=== PATIENT | female | born 1990 | race Caucasian/White ===

== ENCOUNTER 2022-01-22 09:01 | Emergency (ER) | payer OTHER, SELFPAY ==
[2022-01-22 09:05] VITALS: BP 126/83; PULSE 118; RESP 14; TEMP 35.7; O2SAT 100; BMI 25.0
--- NOTE | 2022-01-22 09:21 | ED.GENADULT ---
HPI - General Adult General Time Seen by Provider: 09:21 Date Seen: 01/22/22 Chief complaint: Arrhythmia/Palpitations Stated complaint: Heart palpitations, short of breath Time Seen by Provider: 01/22/22 09:04 Source: patient Mode of arrival: ambulatory Limitations: no limitations History of Present Illness HPI narrative: The patient is a 31-year-old female, who started Celexa for anxiety within the last couple months. Since then she has no she is very sensitive alcohol. She has had for canned lemonade alcoholic beverages last night, felt like she might be ?hung over? this morning, but noticed her heart palpating and feeling funny, feels some slight shortness of breath with that. No leg swelling, edema of the legs, no bleeding or clotting problems. Patient has a IUD in place , she has otherwise been largely healthy., no chest pain no history of arrhythmias. No other drugs or street medications use, or [id number] medications. Related Data Previous Rx's Medication Instructions Recorded citalopram 20 mg tablet 20 mg PO QDAY #90 tabs 11/25/21 metoprolol succinate 25 mg 25 mg PO DAILY #14 tabs 01/22/22 tablet,extended release 24 hr Allergies Allergy/AdvReac Type Severity Reaction Status Date / Time No Known Allergies Allergy Verified 11/25/21 15:04 Review of Systems Status of ROS: Reports: 10 or more systems reviewed and unremarkable except as noted in History and below [facility] Medical History FLORENTIN (generalized anxiety disorder) Social History Smoking Status: Never smoker How often do you have a drink containing alcohol: monthly or less AUDIT-C Alcohol total score: 1 Non-prescribed substance use: denies use Exam Narrative: Exam Narrative: Objective: Vital signs unremarkable, except pulse is slightly elevated 118 Alert or x3, noncyanotic, talks in even and unlabored sentences Neck is supple Chest is clear no rales or wheezing Heart rate and rhythm regular with a lot a ectopy, no murmurs, no S3 no S4 Abdomen benign Extremities are no edema neurologic nonfocal Periphery good perfusion Skin warm and dry Const: Vital Signs, click to edit/add: Vital Signs - 24 hr 01/22/22 09:05 09/02/22 10:31 01/22/22 11:01 Temperature 96.2 F L Pulse Rate 107 H 106 H Pulse Rate [Pulse Oximeter] 118 H Respiratory Rate 14 Blood Pressure 92/66 106/73 Blood Pressure [Ri ght Upper Arm] 126/83 Pulse Oximetry 100 100 100 Oxygen Delivery Me thod Room Air 01/22/22 11:24 01/22/22 12:01 01/22/22 12:31 Temperature Pulse Rate 118 H 110 H 118 H Pulse Rate [Pulse Oximeter] Respiratory Rate Blood Pressure 96/84 104/75 98/73 Blood Pressure [Ri ght Upper Arm] Pulse Oximetry 100 99 100 Oxygen Delivery Me thod Course Vital Signs Vital signs: Initial Vital Signs Temperature 96.2 F L 01/22/22 09:05 Temperature Source Temporal Artery Scan 01/22/22 09:05 Pulse Rate 118 H 01/22/22 09:05 Respiratory Rate 14 01/22/22 09:05 Blood Pressure 126/83 01/22/22 09:05 Blood Pressure Mean 97 01/22/22 09:05 Blood Pressure Position Sitting 01/22/22 09:05 Pulse Oximetry 100 01/22/22 09:05 Oxygen Delivery Method 01/22/22 09:05 Vital Signs Temperature 96.2 F L 01/22/22 09:05 Pulse Rate 118 H 01/22/22 09:05 Respiratory Rate 14 01/22/22 09:05 Blood Pressure 126/83 01/22/22 09:05 Pulse Oximetry 100 01/22/22 09:05 Oxygen Delivery Method 01/22/22 09:05 Temperature 96.2 F L 01/22/22 09:05 Pulse Rate 118 H 01/22/22 12:31 Respiratory Rate 14 01/22/22 09:05 Blood Pressure 98/73 01/22/22 12:31 Pulse Oximetry 100 01/22/22 12:31 Oxygen Delivery Method 01/22/22 09:05 Medical Decision Making MDM Narrative Medical decision making narrative: Patient presents with likely mild alcoholic hangover, on Celexa, sensitivity to alcohol since being on Celexa. Patient does have some ectopy this morning will check an EKG, put on a quality assurance monitor, laboratory studies including troponin D-dimer, COVID. Will review studies when they return, IV fluids as well, and also give aspirin. Differential would include sensitivity alcohol while on Celexa, COVID, intrinsic arrhythmia. Addendum: The patient reports that she felt okay going to bed last night, but got sick this morning and threw up a couple of times about 730 subsequently noticed the rapid heart rate. So onset of symptoms is about 730 this morning. EKG by my read shows narrow complex tachycardia irregularly irregular consistent with atrial fibrillation ventricular rate about 124 06/23/2004 on telemetry. Trial of carotid massage lower the patient's heart rate of about the 97 range, she seemed to have a flutter with saw tooth 3-1 conduction for brief period of time, and then resumed her AFib rate in about the [id number] range. Will try IV fluids and some Ativan, and if she does not convert than likely some rate slowing medication. Cardiology consult as needed. Addendum: The patient's CRP is negative COVID negative, D-dimer negative, alcohol negative, troponin negative, white blood cell count is elevated 14,370 hemoglobin is 14.9,, ER profile is unremarkable, alcohol level is negative. Discussed her case with [facility] hotel office manager who recommended no cardioversion at this time as we really do not know the time of her onset although she did feel it started after she vomited today certainly she has been in AFib, and at this point cardiology recommends aspirin Holter monitoring her ZIO patch metoprolol XL 25 mg and follow up with Cardiology. This will be arranged. I will monitor her as well with a 2nd troponin at noon and monitor her heart rate which ranges now between 105 and 1 25. Addendum: The patient remains stable heart rate between 90 and 115. Will have her on a Holter monitor, scheduled cardiology follow-up, patient likely needs an echo in follow-up, per cardiology recommendation will keep her on metoprolol XL 25 mg daily, will have her take aspirin daily, and monitor blood pressure a couple times a day, she does have a home blood pressure cuff and monitor. If he has trouble or difficulty return here. Otherwise follow up with Cardiology. Lab Data Labs: Lab Results 01/22/22 01/22/22 01/22/22 Range/Units 09:19 09:19 09:19 WBC (4.50-11.00) K/uL RBC (4.00-5.20) m/uL Hgb (12.0-16.0) gm/dL Hct (33.0-51.0) % MCV (80-100) fL MCH (26-34) pg MCHC (32-36) gm/dL RDW Coeff of Vinicius (11.5-15.5) % Plt Count (140-440) K/uL Neut % (Auto) (42.0-72.0) % Lymph % (Auto) (20-44) % [place] % (Auto) (0.0-11.0) % Eos % (Auto) (0.0-7.0) % Baso % (Auto) (0.0-3.0) % Neut # (Auto) (1.7-7.0) K/uL Lymph # (Auto) (0.90-2.90) K/uL [place] # (Auto) (0.00-0.90) K/UL Eos # (Auto) (0.00-0.50) K/uL Baso # (Auto) (0.00-0.30) K/uL Abs Immat Gran (auto) (0.00-0.30) K/uL Diff Slide Review (Acceptable) D-Dimer Quant (PE/DVT) (0.00-0.50) ug/ml Sodium 138 (135-149) mmol/L Potassium 4.0 (3.6-5.1) mmol/L Chloride 103 (96-114) mmol/L Carbon Dioxide 21 (20-32) mmol/L BUN 14 (5-24) mg/dL Creatinine 0.6 (0.5-1.5) mg/dL Estimated Creat Clear 128.35 Estimated GFR 124 ml/min Glucose 101 (60-115) mg/dL Calcium 9.8 (8.4-10.6) mg/dL Magnesium 1.9 (1.5-2.6) mg/dL Total Bilirubin 1.0 (0.1-1.5) mg/dL Direct Bilirubin 0.3 (0.0-0.5) mg/dL AST 25 (12-35) U/L ALT 19 (4-35) U/L Alkaline Phosphatase 54 (40-150) U/L C-Reactive Protein < 0.5 L (0.5-1.0) mg/dL Total Protein 9.1 H (6.0-8.3) g/dL Albumin 5.4 H (3.3-5.0) g/dL Amylase 75 (18-89) U/L HCG, Qual Negative (Negative) Ethyl Alcohol < 0.01 L (0.01-0.03) % SARS-CoV-2 (PCR) (Negative) POC Troponin I (0.01-0.04) ng/ml 01/22/22 01/22/22 01/22/22 Range/Units 09:35 09:50 09:50 WBC (4.50-11.00) K/uL RBC (4.00-5.20) m/uL Hgb (12.0-16.0) gm/dL Hct (33.0-51.0) % MCV (80-100) fL MCH (26-34) pg MCHC (32-36) gm/dL RDW Coeff of Vinicius (11.5-15.5) % Plt Count (140-440) K/uL Neut % (Auto) (42.0-72.0) % Lymph % (Auto) (20-44) % [place] % (Auto) (0.0-11.0) % Eos % (Auto) (0.0-7.0) % Baso % (Auto) (0.0-3.0) % Neut # (Auto) (1.7-7.0) K/uL Lymph # (Auto) (0.90-2.90) K/uL [place] # (Auto) (0.00-0.90) K/UL Eos # (Auto) (0.00-0.50) K/uL Baso # (Auto) (0.00-0.30) K/uL Abs Immat Gran (auto) (0.00-0.30) K/uL Diff Slide Review (Acceptable) D-Dimer Quant (PE/DVT) 0.28 (0.00-0.50) ug/ml Sodium (135-149) mmol/L Potassium (3.6-5.1) mmol/L Chloride (96-114) mmol/L Carbon Dioxide (20-32) mmol/L BUN (5-24) mg/dL Creatinine (0.5-1.5) mg/dL Estimated Creat Clear Estimated GFR ml/min Glucose (60-115) mg/dL Calcium (8.4-10.6) mg/dL Magnesium (1.5-2.6) mg/dL Total Bilirubin (0.1-1.5) mg/dL Direct Bilirubin (0.0-0.5) mg/dL AST (12-35) U/L ALT (4-35) U/L Alkaline Phosphatase (40-150) U/L C-Reactive Protein (0.5-1.0) mg/dL Total Protein (6.0-8.3) g/dL Albumin (3.3-5.0) g/dL Amylase (18-89) U/L HCG, Qual (Negative) Ethyl Alcohol (0.01-0.03) % SARS-CoV-2 (PCR) Negative SARS-CoV-2 (Negative) POC Troponin I 0.00 L (0.01-0.04) ng/ml 01/22/22 01/22/22 Range/Units 09:50 11:46 WBC 14.37 H (4.50-11.00) K/uL RBC 4.79 (4.00-5.20) m/uL Hgb 14.9 (12.0-16.0) gm/dL Hct 44.8 (33.0-51.0) % MCV 94 (80-100) fL MCH 31 (26-34) pg MCHC 33 (32-36) gm/dL RDW Coeff of Vinicius 12.0 (11.5-15.5) % Plt Count 202 (140-440) K/uL Neut % (Auto) 83.7 H (42.0-72.0) % Lymph % (Auto) 12.2 L (20-44) % [place] % (Auto) 3.6 (0.0-11.0) % Eos % (Auto) 0.3 (0.0-7.0) % Baso % (Auto) 0.1 (0.0-3.0) % Neut # (Auto) 12.00 H (1.7-7.0) K/uL Lymph # (Auto) 1.80 (0.90-2.90) K/uL [place] # (Auto) 0.50 (0.00-0.90) K/UL Eos # (Auto) 0.00 (0.00-0.50) K/uL Baso # (Auto) 0.00 (0.00-0.30) K/uL Abs Immat Gran (auto) 0.02 (0.00-0.30) K/uL Diff Slide Review Acceptable Review (Acceptable) D-Dimer Quant (PE/DVT) (0.00-0.50) ug/ml Sodium (135-149) mmol/L Potassium (3.6-5.1) mmol/L Chloride (96-114) mmol/L Carbon Dioxide (20-32) mmol/L BUN (5-24) mg/dL Creatinine (0.5-1.5) mg/dL Estimated Creat Clear Estimated GFR ml/min Glucose (60-115) mg/dL Calcium (8.4-10.6) mg/dL Magnesium (1.5-2.6) mg/dL Total Bilirubin (0.1-1.5) mg/dL Direct Bilirubin (0.0-0.5) mg/dL AST (12-35) U/L ALT (4-35) U/L Alkaline Phosphatase (40-150) U/L C-Reactive Protein (0.5-1.0) mg/dL Total Protein (6.0-8.3) g/dL Albumin (3.3-5.0) g/dL Amylase (18-89) U/L HCG, Qual (Negative) Ethyl Alcohol (0.01-0.03) % SARS-CoV-2 (PCR) (Negative) POC Troponin I 0.00 L (0.01-0.04) ng/ml Discharge Plan Discharge Clinical Impression: Heart palpitations, Atrial fibrillation Patient Disposition: Home w/ Parent or Adult Condition: Improved Additional Instructions: Follow up appointment scheduled at the [facility] on 01/29 with a 1:15pm arrival time. Light activity, aspirin daily 324 mg, metoprolol 25 mg of the extended release daily, citalopram every other day until cardiology visit, avoid alcohol Activity Level: Light activity Discharge Diet: Regular Prescriptions: New metoprolol succinate 25 mg tablet extended release 24 hr 25 mg PO DAILY Qty: 14 2RF No Action citalopram 20 mg tablet 20 mg PO QDAY Qty: 90 3RF Follow Up/Referrals: Jillian James MD [Primary Care Provider] - Stand Alone Forms: [employer] Info Instructions
[2022-01-22] MEDS: ASPIRIN 81 MG TAB.CHEW 324 MG PO (09:40)
[2022-01-22] MEDS: LORazepam 2 MG/ML inj 1 MG IVP (09:49)
[2022-01-22] MEDS: 0.9 % SODIUM CHLORIDE 1000 ml 1,000 ML 6000 ML IV ×2 (09:51→10:27)
[2022-01-22 10:21] LABS: D Dimer Quantitative* 0.28 ug/ml (0.00-0.50)
[2022-01-22] MEDS: dilTIAZem 5 MG/ML inj 15 MG IVP (10:27)
[2022-01-22 10:28] LABS: Albumin* 5.4 g/dL (3.3-5.0); Chloride* 103 mmol/L (96-114); Sodium* 138 mmol/L (135-149)
[2022-01-22 10:31] VITALS: BP 92/66; PULSE 107; O2SAT 100
[2022-01-22 10:31] LABS: Amylase* 75 U/L (18-89)
[2022-01-22 10:31] LABS: SARS PCR* Negative SARS-CoV-2 (Negative)
[2022-01-22 10:32] LABS: Bilirubin Direct* 0.3 mg/dL (0.0-0.5); Carbon Dioxide* 21 mmol/L (20-32); Creatinine* 0.6 mg/dL (0.5-1.5); Est. Creatinine Clearance* 128.35; Estimated Glomerular Filt Rate 124 ml/min
[2022-01-22 10:33] LABS: Alanine Aminotransferase* 19 U/L (4-35); Alkaline Phosphatase* 54 U/L (40-150); Aspartate Amino Transferase* 25 U/L (12-35); Blood Urea Nitrogen* 14 mg/dL (5-24); Calcium* 9.8 mg/dL (8.4-10.6); Glucose* 101 mg/dL (60-115); HCG Qualitative Serum* Negative (Negative); Total Protein* 9.1 g/dL (6.0-8.3)
[2022-01-22 10:39] LABS: C Reactive Protein* < 0.5 mg/dL (0.5-1.0); Ethanol* < 0.01 % (0.01-0.03)
[2022-01-22 10:52] LABS: Basophils Percent Auto 0.1 % (0.0-3.0); Eosinophils Percent Auto 0.3 % (0.0-7.0); Hematocrit 44.8 % (33.0-51.0); Hemoglobin* 14.9 gm/dL (12.0-16.0); Immature Granulocytes Abs Auto 0.02 K/uL (0.00-0.30); Lymphocytes Percent Auto 12.2 % (20-44); Mean Corpuscular HGB Conc 33 gm/dL (32-36); Mean Corpuscular Hemoglobin 31 pg (26-34); Mean Corpuscular Volume 94 fL (80-100); Monocytes Percent Auto 3.6 % (0.0-11.0); Neutrophils Percent Auto 83.7 % (42.0-72.0); Platelet Count* 202 K/uL (140-440); Red Blood Count 4.79 m/uL (4.00-5.20); White Blood Count* 14.37 K/uL (4.50-11.00)
[2022-01-22 10:53] LABS: Slide Review Reflex Yes
[2022-01-22 10:58] LABS: Magnesium* 1.9 mg/dL (1.5-2.6)
[2022-01-22 11:01] VITALS: BP 106/73; PULSE 106; O2SAT 100
[2022-01-22] MEDS: ACETAMINOPHEN 500 MG TABLET 1000 MG PO (11:18)
[2022-01-22 11:23] LABS: Slide Review Acceptable Review (Acceptable)
[2022-01-22 11:24] VITALS: BP 96/84; PULSE 118; O2SAT 100
[2022-01-22] MEDS: METOPROLOL SUCCINATE (XL) 25 MG TAB PO (11:25)
[2022-01-22 12:01] VITALS: BP 104/75; PULSE 110; O2SAT 99
[2022-01-22 12:31] VITALS: BP 98/73; PULSE 118; O2SAT 100
== END 2022-01-22 13:14 | disposition home or self-care (01) ==
PROVIDERS: Emergency Provider Family Medicine; PCP Internal Medicine
DX: I48.91 Unspecified atrial fibrillation (principal)
CPT/HCPCS: 36415; 80048; 80076; 82077; 82150; 83735; 84484; 84703; 85025; 85379; 86140; 87635; 93005; 93225; 93226; 96374; 96375; 99285; A9270; J2060; J7030

== ENCOUNTER 2022-01-29 13:51 | Outpatient (CLI) | payer OTHER, SELFPAY | END 2022-01-29 13:52 | disposition home or self-care (01) | LOC: NFLDREF 13:52 | PROVIDERS: PCP Internal Medicine; Visit Provider Internal Medicine Cardiovascular Disease | DX: I48.91 Unspecified atrial fibrillation (principal); R00.2 Palpitations | CPT/HCPCS: 84443 ==

== ENCOUNTER 2022-02-12 07:48 | Outpatient (CLI) | payer OTHER, SELFPAY | END 2022-02-12 07:49 | disposition home or self-care (01) | LOC: RAD 07:49 | PROVIDERS: PCP Internal Medicine; Visit Provider Internal Medicine Cardiovascular Disease | DX: I48.91 Unspecified atrial fibrillation (principal) | CPT/HCPCS: 93306 ==

== ENCOUNTER 2023-09-05 10:35 | Outpatient (CLI) | payer OTHER, SELFPAY | END 2023-09-05 10:36 | disposition home or self-care (01) | PROVIDERS: PCP Internal Medicine; Visit Provider Internal Medicine | DX: Z13.29 Encounter for screening for other suspected endocrine disorder (principal) | CPT/HCPCS: 84439; 84443; 84481 ==

== ENCOUNTER 2024-02-16 10:15 | Outpatient (REF) | payer OTHER, SELFPAY ==
--- OUTSIDE RECORDS SUMMARY | 2024-02-16 10:21 | XMS_ITS | Clinical Summary ---
Author Organization [facility] Address [place], [place] [address] Care Team Providers Care Application Support Manager Name Role Phone Abdirahman Dong Kaylin Unavailable Azar Lopez MD Primary Care Provider Allergies No known active allergies Medications Medication Sig Dispensed Refills Start Date End Date Status polyethylene glycol (Miralax) 17 g per packet packetIndications :Constipation, unspecified constipation type Mix 17 g in liquid then take by mouth once daily if needed for Constipation. 02/06/2024 Active medication order composerIndicatio ns:Anxiety 1st phorum magnesium blend powder - very infrequently 02/06/2024 Active acetaminophen-iso metheptane-dichlo ralphenazone, 325-65-100 mg, (MIDRIN) 325-65-100 mg capsuleIndication s:Headache(784.0) Take 1 capsule by mouth 4 times daily if needed for Migraine. Max acetaminophen dose: 4000mg in 24 hrs. 20 capsule 2 08/15/2009 4 Discontinu ed(*Patien t states no longer taking) ibuprofen (ADVIL; MOTRIN) 200 mg tablet Take 1 tablet by mouth 4 times daily if needed. 0 06/19/2019 4 Discontinu ed(*Patien t states no longer taking) citalopram (CeleXA) 20 mg tablet Take 1 Tablet (20 mg) by mouth once daily. 0 01/28/2022 4 Discontinu ed(*Patien t states no longer taking) Active Problems Problem Noted Date Diagnosed Date Headache(784.0) 08/16/2009 Surveillance of other previo usly prescribed contraceptive method 02/23/2007 Encounters Date Type Department Care Team Description 02/08/2024 Telephone [facility] [address] [facility] [address] Katheryn Marino PA Lab 02/06/2024 11:00 AM CDT Office Visit [facility] [address] [facility] [place] [address] Katheryn Marino PA Consult (Anxiety, Weight Gain, Womens Health) 02/06/2024 Travel 02/03/2024 Travel from Last 3 Months Immunizations Name Administration Dates Next Due DT (Age < 7 years) 01/14/2003 DTaP 12/18/1996, 3,1991,1991,1991 Hepatitis B (Peds) 01/16/2004,02/27/2003, 003 Inactivated Polio Vaccine 12/18/1996,10/06/1992, 06/07/1992,1991 MMR 01/14/2003,06/30/1992 Social History Tobacco Use Types Packs/Day Years Used Date Smoking Tobacco: Never Passive Smoke Exposure: Yes Smokeless Tobacco: Never Tobacco Cessation:Counseling Given: Not Answered Comments:Exposure Alcohol Use Standard Drinks/Week Comments No 0 (1 standard drink = 0.6 oz pur e alcohol) Social Connections Answer Date Recorded Frequency of Communication with Friends and Fami ly 0 02/03/2024 Financial Resource Strain Answer Date R ecorded Difficulty of Paying Living Expenses 3 02/03/2024 Difficulty of Paying Living Expenses Not on file 02/03/2024 Food Insecurity Answer Date Recorded Worried About Running Out of Food in the Last Ye ar 1 02/03/2024 Transportation Needs Answer Date Record ed Lack of Transportation (Medical) 1 02/03/2024 Housing Stability Answer Date Recorded Unable to Pay for Housing in the Last Year 1 02/03/2024 Sex and Gender Information Value Date Recorded Sex Assigned at Not on file Gender Identity Not on file Sexual Orientation Not on file Obstetrics History Last Filed Vital Signs Vital Sign Reading Time Taken Comments Blood Pressure 116/70 01/29/2022 1:52 PM CDT Pulse 80 01/29/2022 1:52 PM CDT Temperature 36.7 ??C (98 ??F) 05/04/2010 1:0 1 PM METAL PRECISION MACHINE ASSEMBLER Respiratory Rate 14 01/29/2022 1:52 PM CDT Oxygen Saturation - - Inhaled Oxygen Concentration - - Weight 77.1 kg (170 lb) 02/06/2024 9:40 AM CDT reported by patient Height 170.2 cm (5' 7) 02/06/2024 9:40 AM CDT reported by patient Body Mass Index 26.63 02/06/2024 9:40 AM CDT Plan of Treatment Upcoming Encounters Date Type Department Care Team (Late st Contact Info) Description 04/04/2024 9:00 AM METAL PRECISION MACHINE ASSEMBLER Office Visit [facility] [address] [place] [address] Katheryn Marino PA [address] [place] [address] Health Maintenance Due Date Last Done Comments Tdap 2002 Depression screening for age 12+ 2003 HIV for age 15-65 2006 Hepatitis C screening for age 18-79 2009 Tetanus booster 2011 Pap test for age 21-65 08/01/2023 , 01/16/2018, 09/11/2014, Additional history exists COVID-19 vaccine series (2022- season) 2024 01/17/2021, 12/26/2020 Influenza for age 9-49 01/22/2024 BMI (ht and wt on same day) for age 18+ 02/05/2025 02/06/2024 Pneumococcal series for age 6-64 Aged Out No longer eligible based on patient's age to complete this topic Procedures Procedure Name Priority Date/Time Associated Diagnosis Comments CUSTODIAL OPERATIONS MANAGER THIN PREP PAP SCREEN IMAGED Routine 07/31/2020 11:25 AM METAL PRECISION MACHINE ASSEMBLER from Last 3 Months or Most Recently Relevant to Health Maintenance Results * CUSTODIAL OPERATIONS MANAGER THIN PREP PAP SCREEN IMAGED (07/31/2020 11:25 AM METAL PRECISION MACHINE ASSEMBLER) Case Report Gynecologic Cytology Report ? Case: [id number] ? Authorizing Provider: ??Estephanie Staton ?Collected: ? 07/31/2020 1125 ? Hilaria, ? Ordering Location: ? [facility] ?Received: ?08/01/2020 0950 ? First Screen: ?Deb Mike ? Specimen: ?CUSTODIAL OPERATIONS MANAGER ThinPrep Vial Screening, Cervical/Vaginal ? 08/08/2020 5:48 PM CDT [facility] INTERPRETATION/ RESULT NEGATIVE FOR INTRAEPITHELIAL LESION OR MALIGNANCY (NIL) (none) 08/08/2020 5:48 PM CDT [facility] IMEN ADEQUACY Satisfactory for evaluation Endocervical component present 08/08/2020 5:48 PM CDT [facility] HPV REQUEST HPV if ASCUS 08/08/2020 5:48 PM CDT [facility] Last Pap Date 01/16/2018 08/08/2020 5:48 PM CDT [facility] Last Pap Result NIL 5:48 PM CDT [facility] Menstrual Status 08/08/2020 5:48 PM CDT [facility] Additional Information 08/08/2020 5:48 PM CDT [facility] Comment: Interpreted at [facility] - [address], [place] [address] Automated Review Successful 08/08/2020 5:48 PM CDT [facility] Comment:Specimen processed s uccessfully by automated foundry engineer device, ThinPrep Imaging System, [employer] Note The pap test is a screening technique, not a diagnostic procedure. It is used primarily to screen for squamous cancers and precursor lesions. Published studies have shown that it is subject to both false negative and false positive results. The pap test should not be used as the sole means to diagnose or exclude pre-malignant and malignant lesions. 08/08/2020 5:48 PM CDT [facility] Other (Cervical/Vagina l) 07/31/2020 11:25 AM METAL PRECISION MACHINE ASSEMBLER 08/01/2020 9:50 AM METAL PRECISION MACHINE ASSEMBLER Estephanie Staton MD PATHOLOGY/ CYTOLOGY [facility] [address] [place] [address], [place] from Last 3 Months or Most Recently Relevant to Health Maintenance Care Teams Application Support Manager Relationship Specialty Start Date End Date Azar Lopez MD [address] [place] [address] PCP - General Internal Medicine 02/12/22 Abdirahman Dong [address] [place] [address] [address] [place] [address] 06/19/19
--- OUTSIDE RECORDS SUMMARY | 2024-02-16 10:21 | XMS_ITS | Encounter Summary ---
Author Organization [facility] Address [address] [place] [address] Phone [email or web address] Care Team Providers Care Check Out Clerk Name Role Phone Unavailable Primary Care Provider Unavailabl e Encounter Details Date Type Department Care Team (Late st Contact Info) Description 12/21/2023 Claims Summary [facility] [address] [place] [address] Provider, Claims Summary External, [address] [place] [address] Social History Tobacco Use Types Packs/Day Years Used Date Smoking Tobacco: Never Assessed Sex and Gender Information Value Date Recorded Sex Assigned at Not on file Gender Identity Not on file Sexual Orientation Not on file documented as of this encounter Plan of Treatment Not on file documented as of this encounter Visit Diagnoses Not on filedocumented in this encounter
--- OUTSIDE RECORDS SUMMARY | 2024-02-16 10:21 | XMS_ITS | Clinical Summary ---
Author Organization [facility] Address [address] [place] [address] Phone [email or web address] Care Team Providers Care Instrumentation Instructor Name Role Phone Unavailable Primary Care Provider Unavailabl e Encounters Date Type Department Care Team Description 02/01/2024 Claims Summary [facility] [address] [place] [address] Provider, Claims Summary MD Gwen 12/21/2023 Claims Summary [facility] [address] [place] [address] Provider, Claims Summary MD Gwen from Last 3 Months Social History Tobacco Use Types Packs/Day Years Used Date Smoking Tobacco: Never Assessed Sex and Gender Information Value Date Recorded Sex Assigned at Not on file Gender Identity Not on file Sexual Orientation Not on file Plan of Treatment Not on file
--- OUTSIDE RECORDS SUMMARY | 2024-02-16 10:21 | XMS_ITS | Encounter Summary ---
Author Organization [facility] Address [address] [place] [address] Phone CareEverywhereSuppor Care Team Providers Care Tobacco Acreage Measurer Name Role Phone Unavailable Primary Care Provider Unavailabl e Encounter Details Date Type Department Care Team (Late st Contact Info) Description 02/01/2024 Claims Summary [facility] [address] [place] [address] Provider, Claims Summary External, [address] [place] [address] Social History Tobacco Use Types Packs/Day [...]
[2024-02-16 10:57] LABS: Glucose* 92 mg/dL (60-115); Iron* 123 ug/dL (37-170)
[2024-02-16 11:08] LABS: Percent Iron Saturation 36 % (20-50); Total Iron Binding Capacity 344 ug/dL (265-497)
[2024-02-16 11:15] LABS: Vitamin D 25 Hydroxy* 34 ng/mL (30-80)
[2024-02-16 11:48] LABS: Vitamin B12* 772 pg/mL (243-894)
[2024-02-17 15:15] LABS: Insulin, Fasting 6 uIU/mL (3-25)
[2024-02-17 15:17] LABS: Folate, Serum 13.8 ng/mL (>=5.9)
[2024-02-18 04:51] LABS: BILL_GLIADPEPA Y; Gliadin Peptide Ab, IgA <0.72 FLU (0.00-4.99); Tissue Transglutaminase Ab IgA <1.02 FLU (0.00-4.99)
[2024-02-18 15:17] LABS: BILL_GLIADPEPG Y; BILL_TtGG Y; Gliadin Peptide Ab, IgG <0.56 FLU (0.00-4.99); Tissue Transglutaminase Ab IgG <0.82 FLU (0.00-4.99)
== END 2024-02-16 10:16 | disposition home or self-care (01) ==
LOC: NPINS 10:15
PROVIDERS: PCP Internal Medicine; Visit Provider Physician Assistant
DX: K90.0 Celiac disease (principal)
CPT/HCPCS: 82306; 82607; 82728; 82746; 82947; 83525; 83540; 83550; 86231; 86258; 86364

== ENCOUNTER 2024-10-02 11:45 | Outpatient (RCR) | payer OTHER, SELFPAY | END 2025-01-23 15:14 | disposition home or self-care (01) | PROVIDERS: PCP Internal Medicine; Visit Provider Internal Medicine | DX: M62.08 Separation of muscle (nontraumatic), other site (principal); K59.00 Constipation, unspecified; N39.3 Stress incontinence (female) (male); Z51.89 Encounter for other specified aftercare | CPT/HCPCS: 97110; 97112; 97140; 97161; 97535 ==